=== PATIENT | female | born 1965 | race African-American/Black ===

== ENCOUNTER 2020-04-27 02:19 | Emergency (ER) | payer BC ==
[2020-04-27 02:44] VITALS: TEMP 98.6; BMI 33.8
--- OUTSIDE RECORDS SUMMARY | 2020-04-27 02:44 | XMS ---
:1965 Author Organization [facility] Support Name Relationship Address Phone [employer] Unavailable [address] [place] [address] DAFNE JENKINS [address] [place] [address] Re-disclosure Warning The records that you are about to access may contain information from federally- assisted alcohol or drug abuse programs. If such information is present, then the following federally mandated warning applies: This information has been disclosed to you from records protected by federal confidentiality rules (42 CFR part 2). The federal rules prohibit you from making any further disclosure of this information unless further disclosure is expressly permitted by the written consent of the person to whom it pertains or as otherwise permitted by 42 CFR part 2. A general authorization for the release of medical or other information is NOT sufficient for this purpose. The Federal rules restrict any use of the information to criminally investigate or prosecute any alcohol or drug abuse patient.The records that you are about to access may contain highly sensitive health information, the redisclosure of which is protected by Article 27-F of the [facility] Public Health law. If you continue you may haveaccess to information: Regarding HIV / AIDS; Provided by facilities licensed or operated by the [facility] Office of Mental Health; or Provided by the [facility] Office for People With Developmental Disabilities. If such information is present, then the following [facility] mandated warning applies: This information has been disclosed to you from confidential records which are protected by state law. State law prohibits you from making any further disclosure of this information without the specific written consent of the person to whom it pertains, or as otherwise permitted by law. Any unauthorized further disclosure in violation of state law may result in a fine or prison sentence or both. A general authorization for the release of medical or other information is NOT sufficient authorization for further disclosure. Insurance Providers Payer name Policy type / Policy ID Covered Covered constitution party's Policy Plan Coverage type constitution party ID relationship to [employer] Information [employer] PPO [id number] SP [id number]
--- NOTE | 2020-04-27 02:46 | PDOC ---
*Physical Exam - Vital Signs Last Vital Signs Temp Pulse Resp BP Pulse Ox 98.6 F 87 20 206/94 H 98 04/27/20 02:41 04/27/20 02:41 04/27/20 02:41 04/27/20 02:41 04/27/20 02:41 Medical Decision Making - Medical Decision Making 04/27/20 02:45 Patient seen by the advanced practice provider under my supervision. Ancillary testing reviewed as necessary. I agree with plan as outlined by the advanced practice provider. Discharge - Discharge Information Problems reviewed: Yes Clinical Impression/Diagnosis: Right arm pain, Musculoskeletal pain of extremity Condition: Improved Disposition: HOME - Additional Discharge Information Prescriptions: Cyclobenzaprine HCl [Flexeril -] 10 mg PO TID PRN #14 tablet PRN Reason: Muscle Spasms Ibuprofen 600 mg PO QID PRN #20 tablet PRN Reason: Pain - Follow up/Referral - Patient Discharge Instructions Patient Printed Discharge Instructions: DI for Muscle Strain Additional Instructions: Do light stretches rs. Then alternate with ice and heat after. Take ibuprofen every 6 hours as needed for pain. Take Flexeril as prescribed for muscle spasm. Flexeril can make you sleepy, do not drive or operate heavy machinery after taking the medication. With your primary doctor soon as possible Return to the emergency room for any worsening symptoms. - Post Discharge Activity Work/Back to School Note: Back to Work
--- NOTE | 2020-04-27 02:50 | PDOC ---
History of Present Illness - General Chief Complaint: Pain Stated Complaint: PAIN/RT SIDE Time Seen by Provider: 04/27/20 02:41 History Source: Patient - History of Present Illness Initial Comments: 04/27/20 02:50 54 YEAR OLD FEMALE WITH RIGHT UPPER ARM PAIN proximal to shoulder WORSE WITH MOVEMENT since last night. patient reports denies trauma or injury. denies pain Denies swelling, fall. Patient has a past medical history of diabetes and hypertension Past History - Medical History Allergies/Adverse Reactions: Allergies Allergy/AdvReac Type Severity Reaction Status Date / Time No Known Allergies Allergy Verified 04/27/20 02:43 Home Medications: Ambulatory Orders Atorvastatin Ca [Lipitor -] 20 mg PO HS 07/13/14 Benazepril/Hydrochlorothiazide [Benazepril-Hctz 20-12.5 mg Tab] 1 tab PO DAILY 07/13/14 metFORMIN HCL [Glucophage -] 500 mg PO DAILY 07/13/14 Cyclobenzaprine HCl [Flexeril -] 10 mg PO TID PRN #14 tablet 04/27/20 Ibuprofen 600 mg PO QID PRN #20 tablet 04/27/20 Dementia: Yes HTN: Yes Hypercholesterolemia: Yes - Reproductive History Is Patient Now?: No - Psycho-Social/Smoking History Smoking History: Never smoked - Substance Abuse Hx (Audit-C & DAST Scrn) How often the patient has a drink containing alcohol: Monthly or less Number of drinks the patient has on a typical day: 1 or 2 Score: In Men: 4 or > Positive; In Women: 3 or > Positive: 1 Screen Result (Pos requires Nsg. Audit-10AR): Negative In the last yr the pt used illegal drug/Rx for NonMed reason: No Score: Yes response is considered Positive: 0 Screen Result (Positive result requires Nsg. DAST-10): Negative *Physical Exam - Vital Signs Last Vital Signs Temp Pulse Resp BP Pulse Ox 98.6 F 87 20 206/94 H 98 04/27/20 02:41 04/27/20 02:41 04/27/20 02:41 04/27/20 02:41 04/27/20 02:41 - Physical Exam General Appearance: Yes: Appropriately Dressed Respiratory/Chest: positive: Lungs Clear Musculoskeletal: positive: Decreased Range of Motion Neurologic: positive: Fully Oriented, Alert, Normal Mood/Affect ED Progress Note - Progress Note Progress Note: 04/27/20 06:17 A: right arm muscle strain P: toradol lidocaine valium close pcp follow up and strict return precautions were reviewed with patient Medical Decision Making - Medical Decision Making 04/27/20 03:52 XRay: no acute fracture or dislocation (imaging aerodynamic consultant read) 04/27/20 05:19 Patient is here with son who is driving her home Discharge - Discharge Information Problems reviewed: Yes Clinical Impression/Diagnosis: Right arm pain, Musculoskeletal pain of extremity Condition: Improved Disposition: HOME - Additional Discharge Information Prescriptions: Cyclobenzaprine HCl [Flexeril -] 10 mg PO TID PRN #14 tablet PRN Reason: Muscle Spasms Ibuprofen 600 mg PO QID PRN #20 tablet PRN Reason: Pain - Follow up/Referral - Patient Discharge Instructions Patient Printed Discharge Instructions: DI for Muscle Strain Additional Instructions: Do light stretches rs. Then alternate with ice and heat after. Take ibuprofen every 6 hours as needed for pain. Take Flexeril as prescribed for muscle spasm. Flexeril can make you sleepy, do not drive or operate heavy machinery after taking the medication. With your primary doctor soon as possible Return to the emergency room for any worsening symptoms. - Post Discharge Activity Work/Back to School Note: Back to Work
[2020-04-27] MEDS ORDERED: KETOROLAC TROMETHAMINE 30 MG/1 ML VIAL IM ONE (02:51)
[2020-04-27] MEDS ORDERED: KETOROLAC TROMETHAMINE 30 MG/1 ML VIAL ONE (03:02)
[2020-04-27] MEDS ORDERED: LIDOCAINE 5% TOPICAL PATCH TP ONE (03:55)
[2020-04-27] MEDS ORDERED: diazePAM 5 MG TABLET PO ONE (03:57)
[2020-04-27] MEDS ORDERED: diazePAM 5 MG TABLET ONE (04:09)
[2020-04-27] MEDS ORDERED: LIDOCAINE 5% TOPICAL PATCH ONE (04:11)
[2020-04-27 04:41] VITALS: BP 187/92; PULSE 82
--- NOTE | 2020-04-27 10:55 | EKG ---
Test Reason : Blood Pressure : / mmHG Vent. Rate : 084 BPM Atrial Rate : 084 BPM P-R Int : 154 ms QRS Dur : 092 ms QT Int : 376 ms P-R-T Axes : 059 011 038 degrees QTc Int : 444 ms NORMAL SINUS RHYTHM NONSPECIFIC ST ABNORMALITY BORDERLINE ECG Confirmed by MD AMBER, SUNSHINE ([id number]) on 04/27/2020 10:55:08 AM Referred By: Confirmed By:SUNHSINE CLARK MD
[2020-04-27] MEDS ORDERED: LIDOCAINE PATCH REMOVAL MC SCH (22:00)
== END 2020-04-27 05:21 | disposition home or self-care (01) ==
LOC: JER 02:19
PROC: 3E0233Z Introduction of Anti-inflammatory into Muscle, Percutaneous Approach (ICD-10-PCS; principal; 2020-04-27)
DX: M79.601 Pain in right arm (principal)
CPT/HCPCS: 73030-TC-RT-FY; 73060-TC-RT-FY; 93005; 93010; 99285-25

== ENCOUNTER 2020-09-05 08:52 | Emergency (ER) | payer BC ==
[2020-09-05 09:19] VITALS: TEMP 98.2; BMI 29.9
[2020-09-05] MEDS ORDERED: SODIUM CHLORIDE 1,000 ML IV STA (09:29)
[2020-09-05] MEDS ORDERED: ONDANSETRON 4 MG/2 ML VIAL IVPUSH ONE (09:29)
[2020-09-05] MEDS ORDERED: ACETAMINOPHEN 1000 MG/100 ML VIAL (NON FORMULARY) IVPB ONE (09:29)
[2020-09-05] MEDS ORDERED: ONDANSETRON 4 MG/2 ML VIAL ONE (09:59)
[2020-09-05] MEDS ORDERED: ACETAMINOPHEN INJECTION 100 ML IVPB ONE (09:59)
[2020-09-05 11:15] LABS: BASO % 0.4 % (0-2.0); EOS % 0.1 % (0-4.5); HEMATOCRIT 35.1 % (32.4-45.2); HEMOGLOBIN 11.5 GM/dL (10.7-15.3); LYMPH % 24.5 % (8-40); MCH 28.1 pg (25.7-33.7); MCHC 32.9 g/dl (32.0-36.0); MEAN CELL VOLUME 85.4 fl (80-96); MEAN PLT VOLUME 8.4 fl (7.5-11.1); MONO % 9.4 % (3.8-10.2); NEUT % 65.6 % (42.8-82.8); PLATELET COUNT 246 K/MM3 (134-434); RBC 4.11 M/mm3 (3.60-5.2); RDW 13.5 % (11.6-15.6); WHITE BLOOD COUNT 5.7 K/mm3 (4.0-10.0)
[2020-09-05 11:35] LABS: CHLORIDE 101 mmol/L (98-107); POTASSIUM 4.5 mmol/L (3.5-5.1); SODIUM 135 mmol/L (136-145)
[2020-09-05 11:37] LABS: CALCIUM 9.2 mg/dL (8.5-10.1)
[2020-09-05 11:38] LABS: ALBUMIN 3.4 g/dl (3.4-5.0); ANION GAP 9 MMOL/L (8-16); CO2 25 mmol/L (21-32); GLUCOSE,RANDOM 266 mg/dL (74-106)
[2020-09-05 11:41] LABS: CREATININE 1.3 mg/dL (0.55-1.3); SGOT/AST 27 U/L (15-37); SGPT/ALT 20 U/L (13-61)
[2020-09-05 11:43] LABS: BILIRUBIN,TOTAL 0.7 mg/dL (0.2-1); TOT PROT 7.9 g/dl (6.4-8.2)
[2020-09-05 11:44] LABS: ALK PHOS 27 U/L (45-117)
[2020-09-05 12:25] VITALS: BP 153/92; PULSE 83
== END 2020-09-05 12:25 | disposition home or self-care (01) ==
LOC: JER 08:52
PROC: 3E0333Z Introduction of Anti-inflammatory into Peripheral Vein, Percutaneous Approach (ICD-10-PCS; principal; 2020-09-05)
PROC: 3E033GC Introduction of Other Therapeutic Substance into Peripheral Vein, Percutaneous Approach (ICD-10-PCS; 2020-09-05)
PROC: 3E0337Z Introduction of Electrolytic and Water Balance Substance into Peripheral Vein, Percutaneous Approach (ICD-10-PCS; 2020-09-05)
DX: U07.1 COVID-19 (principal)
CPT/HCPCS: 36415; 71046-TC-FY; 80053; 82550; 84484; 85025; 99284-25; C9803; J0131; U0003

== ENCOUNTER 2023-03-13 19:11 | Inpatient (IN) | payer BC ==
[2023-03-13 19:39] VITALS: BMI 31.6
[2023-03-13] MEDS ORDERED: SODIUM CHLORIDE 0.9% 500 ML INFUS.BAG IV ONE ×2 (21:08→23:23)
[2023-03-13] MEDS ORDERED: METOCLOPRAMIDE HCL INJECTION 10 MG/2 ML VIAL IVPUSH ONE (21:10)
[2023-03-13] MEDS ORDERED: METOCLOPRAMIDE HCL INJECTION 10 MG/2 ML VIAL ONE (21:53)
[2023-03-13 22:21] LABS: BASO % 0.3 % (0-2.0); EOS % 0.1 % (0-4.5); HEMATOCRIT 33.9 % (32.4-45.2); HEMOGLOBIN 11.4 GM/dL (10.7-15.3); LYMPH % 9.6 % (8-40); MCH 28.8 pg (25.7-33.7); MCHC 33.6 g/dl (32.0-36.0); MEAN CELL VOLUME 85.7 fl (80-96); MEAN PLT VOLUME 8.4 fl (7.5-11.1); MONO % 10.2 % (3.8-10.2); NEUT % 79.8 % (42.8-82.8); PLATELET COUNT 180 10^3/uL (134-434); RBC 3.96 M/mm3 (3.60-5.2); RDW 12.7 % (11.6-15.6); WHITE BLOOD COUNT 16.1 K/mm3 (4.0-10.0)
[2023-03-13 22:39] LABS: POTASSIUM 3.8 mmol/L (3.5-5.1)
[2023-03-13 22:42] LABS: EPI CELLS >36 /uL (0-25.1); HYALINE CASTS 1 /uL (0-3.1); URINE APPEARANCE TURBID; URINE BACTERIA 3052.3 /uL (0-1359); URINE BILIRUBIN NEGATIVE (NEGATIVE); URINE COLOR DK YELLOW; URINE GLUCOSE (UA) NEGATIVE (NEGATIVE); URINE KETONE TRACE (NEGATIVE); URINE LEUK ESTERASE 3+ (NEGATIVE); URINE NITRITE NEGATIVE (NEGATIVE); URINE PROTEIN 2+ (NEGATIVE); URINE RBC 33 /uL (0-23.9); URINE WBC 2116 /uL (0-25.8)
[2023-03-13 22:42] LABS: ALBUMIN 3.5 g/dl (3.4-5.0); BLOOD UREA NITROGEN 42.8 mg/dL (7-18); CALCIUM 8.6 mg/dL (8.5-10.1); MAGNESIUM 2.2 mg/dL (1.8-2.4)
[2023-03-13 22:47] LABS: BILIRUBIN,TOTAL 1.1 mg/dL (0.2-1); TOT PROT 8.3 g/dl (6.4-8.2)
[2023-03-13] MEDS ORDERED: CEFTRIAXONE 1 GM in DEXTROSE 5%-WATER - 100 ML IVPB ONE (23:23)
[2023-03-14] MEDS ORDERED: ONDANSETRON 4 MG/2 ML VIAL IVPUSH PRN (00:22)
[2023-03-14] MEDS ORDERED: DOCUSATE SODIUM 100 MG CAPSULE (FP) PO PRN (00:22)
[2023-03-14] MEDS ORDERED: CEFTRIAXONE 1 GM/50 ML BAG ONE (00:22)
[2023-03-14] MEDS ORDERED: SODIUM CHLORIDE 1,000 ML IV SCH (00:30)
[2023-03-14] MEDS ORDERED: ACETAMINOPHEN 325 MG TABLET (FP) ONE (01:53)
[2023-03-14] MEDS: ACETAMINOPHEN 325 MG TABLET (FP) PO PRN ×2 (02:07→18:52)
[2023-03-14 07:16] LABS: BASO % 0.3 % (0-2.0); EOS % 0.2 % (0-4.5); HEMATOCRIT 30.5 % (32.4-45.2); HEMOGLOBIN 9.9 GM/dL (10.7-15.3); LYMPH % 6.6 % (8-40); MCH 28.4 pg (25.7-33.7); MCHC 32.6 g/dl (32.0-36.0); MEAN CELL VOLUME 87.3 fl (80-96); MEAN PLT VOLUME 8.9 fl (7.5-11.1); MONO % 10.9 % (3.8-10.2); PLATELET COUNT 169 10^3/uL (134-434); RDW 12.8 % (11.6-15.6); WHITE BLOOD COUNT 13.6 K/mm3 (4.0-10.0)
[2023-03-14 08:42] LABS: BLOOD UREA NITROGEN 38.9 mg/dL (7-18); CALCIUM 7.6 mg/dL (8.5-10.1); CREATININE 2.3 mg/dL (0.55-1.3); POTASSIUM 3.9 mmol/L (3.5-5.1)
[2023-03-14] MEDS: INSULIN SLIDING SCALE (NOVOLOG) 1 VIAL SQ SCH ×4 (08:46→21:05)
[2023-03-14] MEDS: FAMOTIDINE 10 MG TABLET PO SCH (11:52)
[2023-03-14] MEDS ORDERED: INSULIN (NOVOLOG) ASPART 100 UNITS/ML 10ML VIAL ONE (12:23)
[2023-03-14] MEDS: INSULIN (LEVEMIR) 100 UNITS/ML UNITS SQ SCH ×2 (12:26→21:47)
[2023-03-14] MEDS: CEFTRIAXONE 1 GM in DEXTROSE 5%-WATER - 50 ML IVPB SCH (12:32)
[2023-03-14] MEDS: SODIUM CHLORIDE 1,000 ML IV SCH ×2 (13:15→17:22)
[2023-03-15] MEDS: ACETAMINOPHEN 325 MG TABLET (FP) PO PRN ×2 (05:52→17:50)
[2023-03-15] MEDS: INSULIN SLIDING SCALE (NOVOLOG) 1 VIAL SQ SCH ×4 (06:34→22:23)
[2023-03-15] MEDS: INSULIN (LEVEMIR) 100 UNITS/ML UNITS SQ SCH ×2 (06:51→22:18)
[2023-03-15 09:33] LABS: BASO % 0.4 % (0-2.0); EOS % 1.5 % (0-4.5); HEMATOCRIT 30.1 % (32.4-45.2); HEMOGLOBIN 10.2 GM/dL (10.7-15.3); LYMPH % 10.1 % (8-40); MCHC 33.9 g/dl (32.0-36.0); MEAN CELL VOLUME 85.6 fl (80-96); MEAN PLT VOLUME 8.3 fl (7.5-11.1); MONO % 10.5 % (3.8-10.2); NEUT % 77.5 % (42.8-82.8); PLATELET COUNT 171 10^3/uL (134-434); RBC 3.51 M/mm3 (3.60-5.2); RDW 13.2 % (11.6-15.6); WHITE BLOOD COUNT 9.9 K/mm3 (4.0-10.0)
[2023-03-15 10:00] LABS: POTASSIUM 3.7 mmol/L (3.5-5.1)
[2023-03-15 10:03] LABS: CALCIUM 7.6 mg/dL (8.5-10.1)
[2023-03-15 10:04] LABS: BLOOD UREA NITROGEN 25.9 mg/dL (7-18)
[2023-03-15 10:07] LABS: CREATININE 1.7 mg/dL (0.55-1.3)
[2023-03-15 10:08] LABS: BILIRUBIN,TOTAL 0.6 mg/dL (0.2-1)
[2023-03-15 10:13] LABS: ALBUMIN 2.3 g/dl (3.4-5.0); TOT PROT 6.3 g/dl (6.4-8.2)
[2023-03-15] MEDS: CEFTRIAXONE 1 GM in DEXTROSE 5%-WATER - 50 ML IVPB SCH (11:04)
[2023-03-15] MEDS: FAMOTIDINE 10 MG TABLET PO SCH (11:04)
[2023-03-15] MEDS: SODIUM CHLORIDE 1,000 ML IV SCH ×2 (12:19→15:26)
[2023-03-15] MEDS: SODIUM CHLORIDE 0.45% 1,000 ML IV SCH ×2 (17:54→23:58)
[2023-03-15] MEDS: ATORVASTATIN CA 20 MG TABLET (FP) PO SCH (22:18)
[2023-03-16] MEDS ORDERED: ALBUTEROL SO4 HFA INHALER IH PRN (02:15)
[2023-03-16] MEDS: ACETAMINOPHEN 325 MG TABLET (FP) PO PRN (03:48)
[2023-03-16] MEDS: INSULIN (LEVEMIR) 100 UNITS/ML UNITS SQ SCH ×2 (06:31→21:41)
[2023-03-16] MEDS: INSULIN SLIDING SCALE (NOVOLOG) 1 VIAL SQ SCH ×4 (06:32→21:42)
[2023-03-16] MEDS ORDERED: FUROSEMIDE 40 MG/4 ML INJECTABLE VIAL IVPUSH ONE (07:27)
[2023-03-16] MEDS: CEFTRIAXONE 1 GM in DEXTROSE 5%-WATER - 50 ML IVPB SCH (10:21)
[2023-03-16] MEDS: FAMOTIDINE 10 MG TABLET PO SCH (10:21)
[2023-03-16] MEDS ORDERED: amLODIPine BESYLATE 5 MG TABLET (FP) PO ONE (12:00)
[2023-03-16] MEDS ORDERED: INSULIN (NOVOLOG) ASPART 100 UNITS/ML 10ML VIAL ONE (21:09)
[2023-03-16] MEDS: ATORVASTATIN CA 20 MG TABLET (FP) PO SCH (21:42)
[2023-03-17 03:53] VITALS: RESP 18
[2023-03-17] MEDS ORDERED: INSULIN (NOVOLOG) ASPART 100 UNITS/ML 10ML VIAL ONE ×2 (06:47→11:51)
[2023-03-17] MEDS: INSULIN (LEVEMIR) 100 UNITS/ML UNITS SQ SCH (07:53)
[2023-03-17] MEDS: INSULIN SLIDING SCALE (NOVOLOG) 1 VIAL SQ SCH ×2 (07:53→12:02)
[2023-03-17 09:43] LABS: BASO % 0.5 % (0-2.0); EOS % 2.7 % (0-4.5); HEMATOCRIT 33.3 % (32.4-45.2); HEMOGLOBIN 10.8 GM/dL (10.7-15.3); LYMPH % 14.2 % (8-40); MCH 28.1 pg (25.7-33.7); MCHC 32.5 g/dl (32.0-36.0); MEAN CELL VOLUME 86.4 fl (80-96); MEAN PLT VOLUME 7.9 fl (7.5-11.1); MONO % 12.5 % (3.8-10.2); NEUT % 70.1 % (42.8-82.8); PLATELET COUNT 248 10^3/uL (134-434); RBC 3.85 M/mm3 (3.60-5.2); WHITE BLOOD COUNT 8.4 K/mm3 (4.0-10.0)
[2023-03-17] MEDS ORDERED: amLODIPine BESYLATE 5 MG TABLET (FP) PO SCH (10:00)
[2023-03-17 10:02] LABS: POTASSIUM 3.3 mmol/L (3.5-5.1)
[2023-03-17] MEDS: FAMOTIDINE 10 MG TABLET PO SCH (10:03)
[2023-03-17] MEDS: CEFTRIAXONE 1 GM in DEXTROSE 5%-WATER - 50 ML IVPB SCH (10:04)
[2023-03-17 10:07] LABS: ALBUMIN 2.4 g/dl (3.4-5.0); BLOOD UREA NITROGEN 19.9 mg/dL (7-18); CALCIUM 8.4 mg/dL (8.5-10.1); MAGNESIUM 1.7 mg/dL (1.8-2.4)
[2023-03-17 10:10] LABS: CREATININE 1.4 mg/dL (0.55-1.3)
[2023-03-17 10:11] LABS: BILIRUBIN,TOTAL 0.5 mg/dL (0.2-1); TOT PROT 6.8 g/dl (6.4-8.2)
[2023-03-17] MEDS ORDERED: POTASSIUM CHLORIDE TABS 20 MEQ TABLET.ER (FP) PO ONE (11:00)
[2023-03-17] MEDS ORDERED: amLODIPine BESYLATE 5 MG TABLET (FP) PO ONE (11:10)
[2023-03-17 11:35] VITALS: BP 147/82; PULSE 83; TEMP 99
[2023-03-17] MEDS ORDERED: CEPHALEXIN MONOHYDRATE 500 MG CAPSULE (UD) PO SCH (12:00)
[2023-03-18] MEDS ORDERED: amLODIPine BESYLATE 10 MG TABLET (FP) PO SCH (10:00)
== END 2023-03-17 01:50 | disposition home or self-care (01) | DRG 683 ==
LOC: JER 19:11 → JERBED 03-14 00:22 → UNDOADMOB 03-14 00:23 → JERBED 03-14 00:23 → INTOOBSV 03-14 00:23 → JERBED 03-14 07:23 → J8W 03-14 08:29 → OBSVTOIN 03-15 08:32
PROVIDERS: ADMIT Internal Medicine; ATTEND Nurse Practitioner Acute Care
DX: N17.9 Acute kidney failure, unspecified (principal); N39.0 Urinary tract infection, site not specified; I10 Essential (primary) hypertension; E78.5 Hyperlipidemia, unspecified; E11.9 Type 2 diabetes mellitus without complications; R07.81 Pleurodynia; I45.10 Unspecified right bundle-branch block; E66.9 Obesity, unspecified; Z68.31 Body mass index [BMI] 31.0-31.9, adult
CPT/HCPCS: 0241U-QW; 36415; 71045-TC-FY; 76775-TC; 80048; 80053; 81003; 82962; 83735; 85025; 86850; 86900; 86901; 87040; 87086; 93005; 93010; 94010; 99285-25; G0378